=== PATIENT | female | born 1985 | race Caucasian/White ===

== ENCOUNTER 2017-04-16 09:08 | Emergency (ER) | payer MEDICAID ==
[~2017-04-16] VITALS: Ht 167.6 cm; Wt 63.5 kg
[2017-04-16] MEDS ORDERED: LEXAPRO 10 MG T10 MG PO (09:20)
[2017-04-16] MEDS ORDERED: INDERAL 20MG. T20 MG PO (09:21)
[2017-04-16] MEDS ORDERED: KLONOPIN 0.5MG0.5 MG NG (09:21)
--- NOTE | 2017-04-16 09:25 | Urgent Treatment Center Report ---
History of Present Issue Date/Time Seen by Provider 04/16/17 0924 Visit Reason Pt arrived:Walked Presenting Problem:COUGHING AND HEADACHE, JOINT PAIN X 1 WEEK Location if Accident: Onset of symptoms date/time:/ or onset unknown for:MEDICAL HX UNKNOWN Have you (or family members/close friends) recently traveled outside the [place]? N If Yes, where/when: Have you had exposure to infectious disease within the past month? TB? Other? Specify: c/o cough, chest congestion, fever up to 102.5, body aches, chills, green sputum x 1 week. Hasn't taken or tried anything for symptoms. Hx of frequent bronchitis. smokes 1-2ppd "I have been really stressed lately". No known sick contacts. Source patient Exam Limitations no limitations ALLERGIES Coded Allergies: divalproex sodium (From DEPAKOTE) (Intermediate, 04/16/17) Home Medications Reported Medications Escitalopram Oxalate (Lexapro 10MG) 10 MG PO DAILY Clonazepam (Klonopin 0.5MG) 0.5 MG NG QHS Propranolol Hcl (Inderal 20MG. Tablet) 20 MG PO TID History Medical History General Hypertension? Yes Migraines? Yes Anxiety? Yes Immunization HX DT/Tetanus Unknown Surgical Hx Previous Surgery?Y C SECTION TUBAL TUBES REMOVED Social History Smoking Hx Smoker: Current Every Day Smoker Tobacco: Yes Type Cigarettes Packs/day < 1 Pack Alcohol Alcohol: No Review of Systems All Other Systems Reviewed and Negative Constitutional see HPI Eyes denies drainage ENT denies: ear pain, nose discharge, nose congestion, throat pain. Respiratory see HPI Cardiovascular denies chest pain, denies palpitations Gastrointestinal denies no symptoms reported Musculoskeletal see HPI Skin denies rash Psychiatric/Neurological denies headache Physical Exam Vital Signs Vital Signs Date Time Temp Pulse Resp B/P Pulse O2 O2 Flow FiO2 Ox Delivery Rate 04/16 917 98.2 81 18 154/99 100 General Appearance normal appearance, no apparent distress Eye Exam - bilateral eye normal exam Ear, Nose, Throat normal ENT inspection Neck non-tender Respiratory Status Yes: trachea midline, chest symmetrical, non tender chest, non productive cough (worse with deep breathing). No: respiratory distress, use of accessory muscles , pain on inspiration, pain on expiration. Lung Sounds anterior: lungs clear. posterior: lungs clear. bilateral: lungs clear. Cardiovascular regular rate/rhythm, no peripheral edema, no murmur Neurologic alert, oriented x 3 Mental status normal mood/affect Skin normal color, warm/dry Lymphatic no adenopathy Medical Decision Making LABS/Meds/Orders Pt receiving controlled substance in ED? No Results/Orders Orders Procedure Date/time Status CHEST(2 VIEWS-NOT PORTABLE) 04/16 0937 Active XRAY/CT/US XRAY/CT/US XRAY chest XR interpretation by reviewed by me (w/ Dr. Damon, ER MD) Xray Results questionable perihilar changes, no definitive acute changes, poor inspiration Progress [facility] Progress Notes Date 04/16/17 Time 1004 Comment pt aware we are waiting for ER MD to review CXR Departure Departure Time of Disposition 1018 Disposition DC Home or Self Care(routine) Clinical Impression Primary Impression: Acute bronchitis Qualifiers: Bronchitis organism: unspecified organism Qualified Code: J20.9 - Acute bronchitis, unspecified Secondary Impressions: Tobacco abuse Condition STABLE Referrals NO REFERRAL Follow up with primary care IMMEDIATELY for new or worsening symptoms OR no noticeable improvement over the next 48-72 hours. 911 for difficulty breathing.* Patient Instructions DI for Acute Bronchitis Additional Instructions * start antibiotic today. Be sure to complete entire prescription even if feeling better. * Monitor Temp. Tylenol every 4 hours as needed and/or ibuprofen every 6 hours as needed (as long as your primary care doctor has told you that it is ok to take both) for fever/aches/pain. ER if fever no less than 101 despite tylenol and ibuprofen * humidifier/vaporizer/hot steamy shower * Inhaler every 4-6 hours as needed like we discussed. If unsure how to use it, ask pharmacist to demonstrate how. Should help open airways and improve cough, wheezing, shortness of breath. * Mucinex during the day for your cough and cough suppressant only at night. Be sure to drink lots of water. Insurance may not cover a prescription of mucinex. Might be cheaper to get 400mg tablets and take 2 tablets morning, midday and evening all with lots of water. * Promethazine DM cough syrup will cause drowsiness. Use it only at night. No driving, operating machinery or caring for small children after taking it. * Tessalon Perles will not cause drowsiness but use at bedtime to help stop cough so that you can get some rest * Start steroid today. Helps with inflammation therefore, cough and wheezing. Follow directions on package. Rvwd side effects. Pt reports they have taken them before. Discharge Counseling Counseled pt/family regarding diagnosis, test results, medications/RX, home care, follow up needs Prescriptions Current Visit Scripts ALBUTEROL (Proventil Hfa Inhaler) 1-2 PUFF IH Q4-6H PRN PRN SOA, wheezing #1 CAN Azithromycin (Zithromycin (Z-[place]O) 250MG Tab) 250 MG PO DAILY #6 TAB TAKE TWO (2) TABLETS ON DAY 1, THEN ONE (1) TABLET DAY #2 THRU #5 Methylprednisolone (Medrol Dose [place]) 4 MG PO UD #1 [place] TAKE DIRECTED ON PACKAGING PROMETHAZINE/DEXTROMETHORPHAN (Promethazine-Dm Syrup) 10 ML PO QHSP PRN cough #120 ML at 1027
[2017-04-16] MEDS ORDERED: MEDROL 4MG. DOSE4 MG PO (10:24)
[2017-04-16] MEDS ORDERED: PROVENTIL0.09 MG/A1 IH (10:24)
[2017-04-16] MEDS ORDERED: PROMETHAZINE D118 ML PO (10:24)
[2017-04-16] MEDS ORDERED: ZITHROMAX Z PA250 MG PO (10:24)
[2017-04-16 10:29] VITALS: BP 154/99
--- NOTE | 2017-04-16 11:06 | RADIOLOGY REPORT PS360 ---
CHEST(2 VIEWS-NOT PORTABLE) HISTORY: productive cough ORDERING PHYSICIAN: STU ANTHONY APRN PATIENT AGE: 31 years COMPARISON: None available FINDINGS: The cardiomediastinal silhouette and pulmonary vascularity are within normal limits. The lungs are clear without infiltrates, suspicious nodules, or pleural effusions. No acute bony abnormalities. IMPRESSION: Negative chest, no acute finding
== END 2017-04-16 10:31 | disposition home or self-care (01) ==
LOC: UTC 09:08 → EDBD 09:14 → UTC 10:31
DX: J20.9 Acute bronchitis, unspecified (principal); Z72.0 Tobacco use; Z79.899 Other long term (current) drug therapy; Z88.8 Allergy status to other drugs, medicaments and biological substances; I10 Essential (primary) hypertension; F41.9 Anxiety disorder, unspecified

== ENCOUNTER 2017-04-20 09:13 | Emergency (ER) | payer MEDICAID ==
[~2017-04-20] VITALS: Ht 167.6 cm; Wt 65.8 kg
[~2017-04-20 09:13] MED LIST: INDERAL 20MG. T20 MG PO; KLONOPIN 0.5MG0.5 MG NG; LEXAPRO 10 MG T10 MG PO; MEDROL 4MG. DOSE4 MG PO; PROMETHAZINE D118 ML PO; PROVENTIL0.09 MG/A1 IH; ZITHROMAX Z PA250 MG PO
--- NOTE | 2017-04-20 09:27 | Emergency Room Report ---
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 N Clinical Suspician of Infection? N Mental Status: 1 - Regular (Normal Baseline) Sepsis Risk:Low Sepsis Risk Have you (or family members/close friends) recently traveled outside the [place]? N If Yes, where/when: Have you had exposure to infectious disease within the past month? TB? Other? Specify: Comment The patient states that she woke up this morning with RIGHT sided numbness and drooling from the RIGHT side of her mouth. She went to bed last night at about 10:30 with no symptoms like this. She has had a slight headache for about a week , which is worse this morning when she lays down. She says she feels a sensation of a pressure behind her right eye. She is currently being treated for sinusitis and possible pneumonia. She has a history of hypertension. She says she has a family history of strokes in her uncles at a young age. She is a smoker. She denies drug use. No alcohol use. ALLERGIES Coded Allergies: divalproex sodium (From DEPAKOTE) (Intermediate, 04/20/17) Home Medications Active Scripts ALBUTEROL (Proventil Hfa Inhaler) 1-2 PUFF IH Q4-6H PRN PRN SOA, wheezing #1 CAN Prov: 04/16/17 Azithromycin (Zithromycin (Z-HIMA) 250MG Tab) 250 MG PO DAILY #6 TAB Prov: 04/16/17 Methylprednisolone (Medrol Dose Hima) 4 MG PO UD #1 HIMA Prov: 04/16/17 PROMETHAZINE/DEXTROMETHORPHAN (Promethazine-Dm Syrup) 10 ML PO QHSP PRN cough #120 ML Prov: 04/16/17 Reported Medications Escitalopram Oxalate (Lexapro 10MG) 10 MG PO DAILY Clonazepam (Klonopin 0.5MG) 0.5 MG NG QHS Propranolol Hcl (Inderal 20MG. Tablet) 20 MG PO TID History Medical History General Hypertension? Yes Migraines? Yes Anxiety? Yes Immunization Hx Ped.Immunizations UTD Yes DT/Tetanus Unknown Surgical Hx Previous Surgery?Y C SECTION TUBAL TUBES REMOVED REFRIGERATION MECHANIC Hx LMP N/A Social History Smoking Hx Smoker: Current Every Day Smoker Tobacco: Yes Type Cigarettes Packs/day < 1 Pack Alcohol Alcohol: No Review of Systems All Other Systems Reviewed and Negative Constitutional denies fever Eyes blurred vision, denies blindness ENT see HPI. Respiratory cough Psychiatric/Neurological headache, numbness Physical Exam Vital Signs Vital Signs Date Time Temp Pulse Resp B/P Pulse O2 O2 Flow FiO2 Ox Delivery Rate 04/20 1020 72 18 135/70 99 04/20 1011 70 20 139/73 98 04/20 1007 20 04/20 0919 98.3 76 18 158/109 96 General Appearance normal appearance, WD/WN Eye Exam - bilateral eye normal exam, bilateral eye PERRL, bilateral eye EOMI Ear, Nose, Throat hearing grossly normal, normal ENT inspection Neck normal inspection, non-tender, supple, full range of motion Respiratory Status Yes: trachea midline, chest symmetrical, non tender chest. No: respiratory distress. Lung Sounds bilateral: normal breath sounds, lungs clear. Cardiovascular normal exam, regular rate/rhythm, no peripheral edema, no gallop, no JVD, no murmur, no rub, normal peripheral pulses Peripheral Pulses Pulses normal Yes Gastrointestinal normal bowel sounds, normal exam, non tender, soft, no organomegaly Extremities non-tender, normal range of motion, normal inspection Neurologic alert, oriented x 3, very minimal questionable droop RIGHT side of mouth. Mental status normal mood/affect Skin intact, normal color, warm/dry Stroke Score/Tx Stroke Evaluation NIH STROKE SCORE NIH STROKE SCORE Response Value 1a.Level of Consciousness ALERT 0 1b.LOC Questions ANSWERS BOTH CORRECTLY 0 1c.LOC Commands OBEYS BOTH CORRECTLY 0 2 .Best Gaze NORMAL 0 3 .Visual NO VISUAL LOSS 0 4 .Facial Palsy MINOR 1 5a.Motor Arm Left NO DRIFT 0 5b.Motor Arm Right NO DRIFT 0 6a.Motor Leg Left NO DRIFT 0 6b.Motor Leg Right NO DRIFT 0 7 .Limb Ataxia ABSENT 0 8 .Sensory NORMAL 0 9 .Best Language NO APHASIA 0 10.Dysarthria NORMAL ARTICULATION 0 ED.NIH11 NO NEGLECT 0 Total 1 Medical Decision Making LABS/Meds/Orders Pt receiving controlled substance in ED? Yes Comment [id number] 0 rxs. Results/Orders Laboratory Tests 04/20/17 0957: POC Glucose 98 04/20/17 0930: Sodium 142, Potassium 3.9, Chloride 103, Carbon Dioxide 29, BUN 8, Creatinine 0.9, Estimated Creat Clear 92, Estimated GFR (MDRD) 72, Glucose 126 H, Calcium 8.8, Total Bilirubin 0.3, AST 9 L, ALT 14, Alkaline Phosphatase 122 H, Total Protein 7.8, Albumin 3.2 L, Globulin 4.6 H, Albumin/Globulin Ratio 0.7 L, APTT 25.0, WBC 12.0 H, RBC 5.03, Hgb 12.4, Hct 39.5, MCV 78.5 L, RDW 18.6 H, Plt Count 263, Gran % 76.7, Gran # 9.2 H, Lymphocytes % 19.7, Monocytes % 3.6, Lymphocytes # 2.4, Monocytes # 0.4, PUBS MCHC 31.4 L, MCH 24.7 L Current Medication Orders Sig/Larry Start time Last Medication Dose Route Stop Time Status Admin Aspirin 324 MG ONCE ONE 04/20 1015 DC 04/20 PO 04/20 1016 1007 Aspirin 0 .STK-MED ONE 04/20 1004 DC .ROUTE Morphine Sulfate 0 .STK-MED ONE 04/20 1004 DC .ROUTE Ondansetron HCl 0 .STK-MED ONE 04/20 1004 DC .ROUTE Morphine Sulfate 2 MG ONCE ONE 04/20 1000 DC 04/20 IV 04/20 1001 1007 Ondansetron HCl 4 MG ONCE ONE 04/20 1000 DC 04/20 IV 04/20 1001 1007 Sodium Chloride 10 ML PRN PRN 04/20 0945 DCD IV 04/21 0932 Orders Procedure Date/time Status DIET-NOTHING BY MOUTH 04/20 L Active FINGERSTICK BLOOD SUGAR 04/20 0957 Complete ELECTROCARDIOGRAM REQUEST 04/20 955 Active FSBS REQUEST BY CARE AREA 04/20 955 Active CHEST(2 VIEWS-NOT PORTABLE) 04/20 933 Active IV SALINE LOCK 04/20 933 Active URINALYSIS/COMPLETE 04/20 933 Active PARTIAL THROMBOPLASTIN TIME 04/20 933 Complete DRUG ABUSE SCREEN (10) 04/20 933 Active CBC WITH AUTO DIFF 04/20 933 Complete CHEM 12 PROFILE 04/[address] HEAD REQ 04/20 0922 Complete 12 LEAD EKG-GABBY (INITIAL) 04/20 UNK Active CM/EKG CM/EKG Comments EKG interpreted by Edilberto Damon MD: Rhythm: sinus Rate: 69 [place]: normal Ectopy: none Conduction: normal ST Segment Changes: none T Wave Changes: none Q Waves: none No evidence of acute ischemia or injury Baseline artifact present, but I consider the EKG adequate for accurate interpretation. XRAY/CT/US XRAY/CT/US XRAY chest Comment Chest x-ray interpreted by Edilberto Damon M.D. a RIGHT hilar prominence, atelectasis of the bases CT head Comment CT scan interpreted by radiologist: No acute intracranial findings. RIGHT maxillary and ethmoid sinusitis. Partially calcified pineal cyst. Progress - Patient requests pain medicine for headache. 10:00 AM: Case discussed with Dr. Brooke, stroke team [facility]. He accepts the patient in transfer. He requested aspirin be administered. Not a candidate for thrombolysis. Departure Departure Disposition DC/XFER from ER to [facility] Clinical Impression Primary Impression: Numbness on right side Secondary Impressions: Headache Qualifiers: Headache type: unspecified Headache chronicity pattern: acute headache Intractability: not intractable Qualified Code: R51 - Headache Sinusitis Qualifiers: Sinusitis location: unspecified location Chronicity: acute Recurrence: not specified as recurrent Qualified Code: J01.90 - Acute sinusitis, unspecified Condition STABLE ED Critical Care Critical Care No at 1100
--- NOTE | 2017-04-20 09:46 | RADIOLOGY REPORT PS360 ---
CT HEAD W/O CONTRAST HISTORY: DROOLING, RT SIDED WEAKNESS SINCE 614 ORDERING PHYSICIAN: Edilberto Damon MD PATIENT AGE: 31 years COMPARISON: None TECHNIQUE: Axial images obtained without contrast. Brain and bone windows reviewed. FINDINGS: No midline shift, mass effect, intracranial hemorrhage, hydrocephalus, or extra-axial fluid collection is evident. There is a partially calcified pineal cyst at 8 mm nonspecific. No hydrocephalus. The calvarium has an unremarkable appearance. No mastoid effusion. There is an air-fluid level in the right maxillary sinus with mucosal thickening of the right maxillary and ethmoid sinuses. IMPRESSION: 1. No acute intracranial findings. 2. Right maxillary and ethmoid sinusitis 3. Incidental partially calcified pineal cyst 4. There is no evidence of intracranial hemorrhage, focal mass, or acute territorial infarction. A negative CT does not exclude an acute CVA. A follow-up head CT or MRI is recommended if neurological symptoms persist
[2017-04-20 09:47] LABS: HEMOGLOBIN 12.4 g/dL (12.2-16.2)
[2017-04-20 09:48] LABS: LYMPH # 2.4 K/mm3 (0.7-4.5); LYMPH % 19.7 % (10-50.0)
[2017-04-20 10:20] VITALS: BP 135/70
--- NOTE | 2017-04-20 12:29 | RADIOLOGY REPORT PS360 ---
CHEST(2 VIEWS-NOT PORTABLE) HISTORY: Congestion RIGHT SIDE NUMBNESS, RECENT CONGESTION ORDERING PHYSICIAN: Edilberto Damon MD PATIENT AGE: 31 years COMPARISON: None available FINDINGS: The cardiomediastinal silhouette and pulmonary vascularity are within normal limits. Atelectasis or patchy infiltrate noted within the lingula. The remaining lungs are clear. No acute bony anomalies. IMPRESSION: Atelectasis and/or infiltrate within the lingula
== END 2017-04-20 10:22 | disposition short-term general hospital (02) ==
LOC: ER 09:13
PROVIDERS: Emergency Medicine
DX: R20.0 Anesthesia of skin (principal); J01.90 Acute sinusitis, unspecified; R51 Headache; Z88.8 Allergy status to other drugs, medicaments and biological substances; F17.210 Nicotine dependence, cigarettes, uncomplicated; F41.9 Anxiety disorder, unspecified; I10 Essential (primary) hypertension
CPT/HCPCS: J2405

== ENCOUNTER → 2017-05-20 | Outpatient (CLI) | payer MEDICAID ==
[2017-05-20 18:41] LABS: HEMOGLOBIN 13.4 g/dL (12.2-16.2); LYMPH # 2.1 K/mm3 (0.7-4.5); LYMPH % 27.5 % (10-50.0)
[2017-05-20 19:39] LABS: BUN 11 mg/dL (7-18)
[2017-05-20 19:47] LABS: GFR (ESTIMATED) 72 ML/MIN (59-)
[2017-05-22 08:37] LABS: Folate (Folic Acid) 7.1 ng/mL (>3.0); Vitamin D, 25-Hydroxy 35.9 ng/mL (30.0-100.0)
--- NOTE | 2017-05-25 11:46 | RADIOLOGY REPORT PS360 ---
US TRANSVAGINAL PREG HISTORY: POSITIVE URINE PREG, BLEEDING ORDERING PHYSICIAN: ALLISON ZUNIGA PATIENT AGE: 31 years COMPARISON: None FINDINGS: Uterus is 5.4 x 2.8 cm. No intrauterine gestational sac is evident. The endometrium measures 6 mm in thickness. The right ovary is 2.2 x 1.5 cm. The left ovary is 2. 2.4 cm. There is a 2.5 cm ovarian cyst. There are small bilateral ovarian follicles. No cul-de-sac fluid is evident. Initial images of the cervix submitted shows a longitudinal hypoechoic area which is not redemonstrated on subsequent images. This is of questionable clinical significance. IMPRESSION: 1. No intrauterine gestational sac apparent. Cannot confirm viability. Please correlate with beta hCG and follow-up exam. 2. 2.5 cm left ovarian cyst
== END ==
LOC: RAD 16:50 → LAB 16:50
PROVIDERS: Physician Assistant
DX: Z32.01 Encounter for pregnancy test, result positive (principal)

== ENCOUNTER → 2017-06-18 | Outpatient (CLI) | payer MEDICAID ==
--- NOTE | 2017-06-18 14:39 | RADIOLOGY REPORT PS360 ---
PROCEDURE: 2-D M-mode and color Doppler study INDICATIONS FOR THE TEST: Chest pain COPD Heart Murmur Tobacco SmokingX Palpitations Fatigue Syncope EdemaX HypertensionXDiabetes Mellitus Rheumatic Fever SOB LEYVA Obesity HyperlipidemiaX Family History HDX Additional History ANB EKG PATIENT INFORMATION HEIGHT: 66 WEIGHT:139 GENDER: Female B/P:134/86 2-D/M-MODE INTERPRETATION: 2-D MEASUREMENTS OBSERVED VALUES IN CMS Right Ventricular Dimension (RVDd) 2.0 Interventricular Septum (Thickness)(IVsd) .8 Left Ventricular Internal Dimensions(LVIDd) 4.8 Left Ventricular Posterior Wall (Thickness)(LVPWd) .9 Aortic Root 2.7 Aortic Cusp Separation 3.0 Left Atrial Dimensions (LAD) 3.2 2D 1. Left atrium is normal size, left ventricle is normal size, there is no concentric left ventricular hypertrophy, visually estimated ejection fraction 55% with no obvious regional wall motion abnormality. 2. The right atrium and right ventricle are normal size and contractility. 3. The aortic, mitral and tricuspid valve are structurally normal. 4. The pulmonic valve is poorly visualized. 5. No significant pericardial effusion noted DOPPLER INTERROGATION: Doppler interrogation of the aortic, mitral and tricuspid valvular presence of mild mitral and tricuspid regurgitation, tricuspid and enteric velocity insufficient for calculation of the right ventricular systolic pressure, diastolic parameters are within normal range. CONCLUSION: 1. Normal left ventricular size, preserved left ventricular systolic function, visually estimated ejection fraction 55% with no obvious regional wall motion abnormality, diastolic parameters are within normal range. 2. Mild mitral and tricuspid regurgitation. 3. No significant pericardial effusion noted.
== END ==
LOC: RT 06-01 08:30
DX: I10 Essential (primary) hypertension (principal); E78.5 Hyperlipidemia, unspecified; R94.31 Abnormal electrocardiogram [ECG] [EKG]; Z72.0 Tobacco use

== ENCOUNTER → 2017-07-02 | Outpatient (CLI) | payer MEDICAID ==
[2017-07-02 17:11] LABS: BUN 11 mg/dL (7-18)
[2017-07-02 17:12] LABS: GFR (ESTIMATED) 83 ML/MIN (59-)
== END ==
LOC: LAB 15:01
PROVIDERS: Internal Medicine
DX: R06.00 Dyspnea, unspecified (principal); R53.83 Other fatigue